=== PATIENT | female | born 1955 | race Caucasian/White ===

== ENCOUNTER 2018-06-13 20:19 | Emergency (ER) | payer MEDICARE, OTHER ==
[~2018-06-13] VITALS: Ht 154.9 cm; Wt 97.3 kg
[2018-06-13] MEDS ORDERED: AMLODIPINE VALS PO (20:41)
[2018-06-13] MEDS ORDERED: LANTUS SOLOS100 U/ML SQ (20:43)
[2018-06-13] MEDS ORDERED: INSULIN HUMA100 U/ML SQ (20:44)
[2018-06-13] MEDS ORDERED: RT ALBUTEROL CC18 GM IH (20:49)
[2018-06-13] MEDS ORDERED: LEXAPRO 10MG10 MG PO (20:49)
[2018-06-13] MEDS ORDERED: NORVASC 5MG5 MG/TAB PO (20:49)
[2018-06-13] MEDS ORDERED: GLUCOPHAGE500 MG/TAB PO (20:50)
[2018-06-13] MEDS ORDERED: KLONOPIN 1MG1 MG PO (20:50)
[2018-06-13] MEDS ORDERED: HYZAAR 100-12.1 EACH PO (20:50)
[2018-06-13] MEDS ORDERED: ZOCOR40 M1 PO (20:51)
[2018-06-13] MEDS ORDERED: ULTRAM50 M1 PO (20:55)
[2018-06-13] MEDS ORDERED: SINGULAIR 110 MG/TAB PO (20:55)
[2018-06-13] MEDS ORDERED: GABAPENTIN TAB600 MG PO (20:56)
[2018-06-13] MEDS ORDERED: WELLBUTRIN SR100 M4 PO (20:56)
[2018-06-13 21:39] LABS: EOS # 0.2 (0.04-0.40); HEMATOCRIT 38.7 % (37.0-47.0); HEMOGLOBIN 13.4 g/dL (12.5-16.0); LYMPH# 2.6 (1.50-4.00); MEAN CELL VOLUME 82 fl (78-100); MEAN CORPUSCULAR HEMOGLOBIN 29 pg (27-31); MEAN CORPUSCULAR HGB CONC 35 g/dL (33-37); MEAN PLATELET VOLUME 10.7 fl (7.4-10.4); MONO # 0.5 (0.20-0.80); NEU # 6.2 (1.40-6.50); PLATELET COUNT 224 K/mm3 (130-400); RED BLOOD COUNT 4.71 M/mm3 (4.10-5.30); RED CELL DISTRIBUTION WIDTH 13.3 % (11.5-14.5); WHITE BLOOD COUNT 9.6 K/mm3 (4.8-10.8)
[2018-06-13 21:48] LABS: CALCIUM 8.9 mg/dL (8.4-10.2); POTASSIUM 3.3 mmol/L (3.6-5.0)
[2018-06-13] MEDS ORDERED: NORCO 325 MG-51 TA1 PO (22:23)
[2018-06-13] MEDS ORDERED: MORGIDOX 1X100100 MG PO (22:23)
[2018-06-13] MEDS ORDERED: IPRATROPIUM BROM3 M1 IH (22:23)
[2018-06-13] MEDS ORDERED: PREDNISONE20 M1 PO (22:23)
[2018-06-13 22:43] VITALS: BP 169/75
== END 2018-06-13 22:43 | disposition home or self-care (01) ==
LOC: ED 20:19
PROVIDERS: Family Medicine
DX: J44.9 Chronic obstructive pulmonary disease, unspecified (principal); I10 Essential (primary) hypertension; E11.9 Type 2 diabetes mellitus without complications; E78.5 Hyperlipidemia, unspecified; F41.9 Anxiety disorder, unspecified; F32.9 Major depressive disorder, single episode, unspecified; F17.210 Nicotine dependence, cigarettes, uncomplicated; Z79.4 Long term (current) use of insulin; Z79.899 Other long term (current) drug therapy; Z91.138 Patient's unintentional underdosing of medication regimen for other reason
CPT/HCPCS: J0595

== ENCOUNTER 2018-12-20 21:14 | Emergency (ER) | payer MEDICARE, OTHER ==
[~2018-12-20] VITALS: Ht 157.5 cm; Wt 97.3 kg
[~2018-12-20 21:14] MED LIST: AMLODIPINE VALS PO; GABAPENTIN TAB600 MG PO; GLUCOPHAGE500 MG/TAB PO; HYZAAR 100-12.1 EACH PO; INSULIN HUMA100 U/ML SQ; IPRATROPIUM BROM3 M1 IH; KLONOPIN 1MG1 MG PO; LANTUS SOLOS100 U/ML SQ; LEXAPRO 10MG10 MG PO; MORGIDOX 1X100100 MG PO; NORCO 325 MG-51 TA1 PO; NORVASC 5MG5 MG/TAB PO; PREDNISONE20 M1 PO; RT ALBUTEROL CC18 GM IH; SINGULAIR 110 MG/TAB PO; ULTRAM50 M1 PO; WELLBUTRIN SR100 M4 PO; ZOCOR40 M1 PO
[2018-12-20 22:32] LABS: EOS # 0.1 (0.04-0.40); HEMATOCRIT 39.1 % (37.0-47.0); HEMOGLOBIN 13.6 g/dL (12.5-16.0); LYMPH# 3.1 (1.50-4.00); MEAN CELL VOLUME 80 fl (78-100); MEAN CORPUSCULAR HEMOGLOBIN 28 pg (27-31); MEAN CORPUSCULAR HGB CONC 35 g/dL (33-37); MEAN PLATELET VOLUME 11.2 fl (7.4-10.4); MONO # 0.3 (0.20-0.80); NEU # 4.8 (1.40-6.50); PLATELET COUNT 248 K/mm3 (130-400); RED BLOOD COUNT 4.88 M/mm3 (4.10-5.30); WHITE BLOOD COUNT 8.4 K/mm3 (4.8-10.8)
[2018-12-20 22:48] LABS: ALBUMIN 3.8 g/dL (3.4-4.8); CALCIUM 9.6 mg/dL (8.3-10.5); POTASSIUM 3.8 mmol/L (3.5-5.1); TOTAL BILIRUBIN 0.3 mg/dL (0.2-1.2); TOTAL PROTEIN 7.3 g/dL (6.2-8.1)
[2018-12-20] MEDS ORDERED: AZITHROMYCIN 250MGPK PO (23:36)
[2018-12-20] MEDS ORDERED: PREDNISONE10 MG PO (23:37)
[2018-12-20] MEDS ORDERED: AERONEB GO NEB1 EACH MC (23:38)
[2018-12-20] MEDS ORDERED: IPRATROPIUM BROM3 M1 IH (23:39)
[2018-12-20] MEDS ORDERED: PROAIR HFA0.09 MG/AC IH (23:39)
[2018-12-20] MEDS ORDERED: ADULT AEROSOL1 EACH MC (23:39)
[2018-12-20] MEDS ORDERED: DIFLUCAN150 M1 PO (23:45)
[2018-12-20 23:47] VITALS: BP 187/89
== END 2018-12-20 23:47 | disposition home or self-care (01) ==
LOC: ED 21:14
PROVIDERS: Nurse Practitioner
DX: J44.9 Chronic obstructive pulmonary disease, unspecified (principal); E11.9 Type 2 diabetes mellitus without complications; I10 Essential (primary) hypertension; F41.9 Anxiety disorder, unspecified; F32.9 Major depressive disorder, single episode, unspecified; E78.5 Hyperlipidemia, unspecified; F17.210 Nicotine dependence, cigarettes, uncomplicated; Z79.4 Long term (current) use of insulin; Z79.84 Long term (current) use of oral hypoglycemic drugs
CPT/HCPCS: J2930

== ENCOUNTER → 2019-05-10 | Outpatient (CLI) | payer MEDICARE, OTHER ==
[~2019-05-10] MED LIST changes: +ADULT AEROSOL1 EACH MC; +AERONEB GO NEB1 EACH MC; +AZITHROMYCIN 250MGPK PO; +DIFLUCAN150 M1 PO; +PREDNISONE10 MG PO; +PROAIR HFA0.09 MG/AC IH
== END ==
LOC: LAB 17:01
PROVIDERS: Internal Medicine
DX: Z01.82 Encounter for allergy testing (principal)

== ENCOUNTER → 2019-05-11 | Outpatient (CLI) | payer MEDICARE, OTHER | LOC: RAD 07:00 | DX: G31.9 Degenerative disease of nervous system, unspecified (principal); E04.2 Nontoxic multinodular goiter; R94.6 Abnormal results of thyroid function studies | CPT/HCPCS: A9585 ==

== ENCOUNTER 2020-06-05 09:23 | Outpatient (RCR) | payer MEDICARE, OTHER | END 2020-06-11 16:12 | disposition home or self-care (01) | LOC: OPPGERO 09:23 | DX: F33.8 Other recurrent depressive disorders (principal); F41.1 Generalized anxiety disorder; E11.9 Type 2 diabetes mellitus without complications; Z62.810 Personal history of physical and sexual abuse in childhood; Z63.4 Disappearance and death of family member; Z79.4 Long term (current) use of insulin ==

== ENCOUNTER 2020-06-12 12:14 | Outpatient (RCR) | payer MEDICARE, OTHER ==
[2020-06-19] MEDS ORDERED: VITAMIN C PUR1000 MG PO (18:13)
[2020-06-19] MEDS ORDERED: DECADRON6 M1 PO (18:13)
[2020-06-19] MEDS ORDERED: ZITHROMAX 250M250 MG PO (18:13)
[2020-06-19] MEDS ORDERED: PHARMASSURE ZIN50 MG PO (18:13)
[2020-06-19] MEDS ORDERED: VITAMIN D3125 MC4 PO (18:13)
== END 2020-07-12 18:19 | disposition home or self-care (01) ==
LOC: OPPGERO 12:14
DX: F41.8 Other specified anxiety disorders (principal); E11.9 Type 2 diabetes mellitus without complications; J44.9 Chronic obstructive pulmonary disease, unspecified; G47.8 Other sleep disorders; Z63.4 Disappearance and death of family member; Z90.710 Acquired absence of both cervix and uterus; Z90.89 Acquired absence of other organs; Z79.4 Long term (current) use of insulin; F17.210 Nicotine dependence, cigarettes, uncomplicated

== ENCOUNTER 2020-07-16 13:22 | Outpatient (RCR) | payer MEDICARE, OTHER ==
[2020-06-19 18:27] VITALS: BP 159/76
[~2020-07-16 13:22] MED LIST changes: +DECADRON6 M1 PO; +PHARMASSURE ZIN50 MG PO; +VITAMIN C PUR1000 MG PO; +VITAMIN D3125 MC4 PO; +ZITHROMAX 250M250 MG PO
== END 2020-08-10 12:30 | disposition home or self-care (01) ==
LOC: OPPGERO 13:22
DX: F32.9 Major depressive disorder, single episode, unspecified (principal); F41.1 Generalized anxiety disorder; E11.9 Type 2 diabetes mellitus without complications; Z63.4 Disappearance and death of family member; Z62.810 Personal history of physical and sexual abuse in childhood; Z90.89 Acquired absence of other organs; Z90.710 Acquired absence of both cervix and uterus; Z98.890 Other specified postprocedural states; Z79.4 Long term (current) use of insulin; Z87.891 Personal history of nicotine dependence

== ENCOUNTER 2020-08-13 09:04 | Outpatient (RCR) | payer MEDICARE, OTHER ==
[2020-06-19 18:27] VITALS: BP 159/76
[~2020-08-13 09:04] MED LIST changes: +GLUCOPHAGE PO; -GLUCOPHAGE500 MG/TAB PO
== END 2020-09-07 16:09 | disposition home or self-care (01) ==
LOC: OPPGERO 09:04
DX: F32.9 Major depressive disorder, single episode, unspecified (principal); F41.9 Anxiety disorder, unspecified

== ENCOUNTER 2020-12-24 17:54 | Emergency (ER) | payer MEDICARE, OTHER ==
[2020-12-24 18:46] LABS: BASO # 0.03 (0.02-0.10); EOS # 0.25 (0.04-0.40); EOS % 4.4 % (1.0-5.0); HEMATOCRIT 42.6 % (37.0-47.0); HEMOGLOBIN 15.5 g/dL (12.5-16.0); LYMPH# 1.93 (1.50-4.00); MEAN CELL VOLUME 79 fl (78-100); MEAN CORPUSCULAR HEMOGLOBIN 29 pg (27-31); MEAN CORPUSCULAR HGB CONC 36 g/dL (33-37); MEAN PLATELET VOLUME 10.7 fl (7.4-10.4); MONO # 0.43 (0.20-0.80); NEU # 3.08 (1.40-6.50); PLATELET COUNT 219 K/mm3 (130-400); RED BLOOD COUNT 5.41 M/mm3 (4.10-5.30); RED CELL DISTRIBUTION WIDTH 12.8 % (11.5-14.5); WHITE BLOOD COUNT 5.7 K/mm3 (4.8-10.8)
[2020-12-24 18:56] LABS: POTASSIUM 3.1 mmol/L (3.5-5.1); SODIUM 136 mmol/L (136-145)
[2020-12-24 18:57] LABS: CALCIUM 8.8 mg/dL (8.3-10.5)
[2020-12-24 18:58] LABS: GLUCOSE 233 mg/dL (65-105); TOTAL PROTEIN 7.3 g/dL (6.2-8.1)
[2020-12-24 18:59] LABS: CARBON DIOXIDE 26 mmol/L (23-31)
[2020-12-24 19:00] LABS: TOTAL BILIRUBIN 0.8 mg/dL (0.2-1.2)
[2020-12-24 19:03] LABS: AST-SGOT 11 U/L (5-34)
[2020-12-24 19:05] LABS: ALT/SGPT 12 U/L (0-55); STREP SCREEN NEGATIVE (NEGATIVE)
[2020-12-24 19:10] LABS: D-DIMER 0.66 mg/L FEU (0.15-0.50)
[2020-12-24 19:17] LABS: TROPONIN-I < 0.03 ng/mL (<0.030)
[2020-12-24] MEDS ORDERED: PREDNISONE20 M1 PO (21:22)
[2020-12-24] MEDS ORDERED: ZITHROMAX Z PA250 MG PO (21:22)
[2020-12-24 22:59] VITALS: BP 158/78
== END 2020-12-24 23:10 | disposition home or self-care (01) ==
LOC: ED 17:54
PROVIDERS: Nurse Practitioner
DX: J44.1 Chronic obstructive pulmonary disease with (acute) exacerbation (principal); I10 Essential (primary) hypertension; E11.9 Type 2 diabetes mellitus without complications; Z79.4 Long term (current) use of insulin; Z79.51 Long term (current) use of inhaled steroids; Z79.899 Other long term (current) drug therapy
CPT/HCPCS: J0696; J1815; J1885; J2405; J2930; J7030; Q9967

== ENCOUNTER → 2021-03-01 | Outpatient (CLI) | payer MEDICARE, OTHER ==
[~2021-03-01] MED LIST changes: +ADVAIR DISKUS1 DS2 IH; +ASPIRIN E.C. 8181 MG PO; +CLARITIN 1010 MG/TAB PO; +CYANOCOBAL1000 MCG/1 IM; +FERROUS SULFATE65 MG PO; +FISH OIL 1000MG1 CAP PO; +KLOR-CON 1010 MEQ PO; +LOPRESSOR 550 MG/TAB PO; +MAGNESIUM OXID400 M1 PO; +NEIGHBOR PH PO; +RT SPIRIVA INH18 MCG IH; +TRICOR145 M1 PO; +VITAMIN D21250 MCG PO; +ZITHROMAX Z PA250 MG PO
[2021-03-01 11:11] LABS: MAGNESIUM 1.49 mg/dL (1.60-2.60)
== END ==
LOC: LAB 10:33
PROVIDERS: Internal Medicine
DX: E11.9 Type 2 diabetes mellitus without complications (principal); E78.2 Mixed hyperlipidemia; K90.9 Intestinal malabsorption, unspecified

== ENCOUNTER → 2021-03-13 | Outpatient (CLI) | payer MEDICARE, OTHER | LOC: LAB 14:22 | DX: Z20.822 Contact with and (suspected) exposure to COVID-19 (principal) ==

== ENCOUNTER 2021-04-12 13:53 | Emergency (ER) | payer MEDICARE, OTHER ==
[~2021-04-12 13:53] MED LIST changes: -ADVAIR DISKUS1 DS2 IH; -ASPIRIN E.C. 8181 MG PO; -CLARITIN 1010 MG/TAB PO; -CYANOCOBAL1000 MCG/1 IM; -FERROUS SULFATE65 MG PO; -FISH OIL 1000MG1 CAP PO; -KLOR-CON 1010 MEQ PO; -LOPRESSOR 550 MG/TAB PO; -MAGNESIUM OXID400 M1 PO; -NEIGHBOR PH PO; -RT SPIRIVA INH18 MCG IH; -TRICOR145 M1 PO; -VITAMIN D21250 MCG PO
[2021-04-12] MEDS ORDERED: ADVAIR DISKUS1 DS2 IH (14:49)
[2021-04-12] MEDS ORDERED: ASPIRIN E.C. 8181 MG PO (14:50)
[2021-04-12] MEDS ORDERED: CYANOCOBAL1000 MCG/1 IM (14:51)
[2021-04-12] MEDS ORDERED: VITAMIN D21250 MCG PO (14:53)
[2021-04-12] MEDS ORDERED: FERROUS SULFATE65 MG PO (14:55)
[2021-04-12] MEDS ORDERED: FISH OIL 1000MG1 CAP PO (14:56)
[2021-04-12 14:57] LABS: ALBUMIN 3.8 g/dL (3.4-4.8); BASO # 0.04 (0.02-0.10); CALCIUM 9.5 mg/dL (8.3-10.5); CARBON DIOXIDE 27 mmol/L (23-31); EOS # 0.16 (0.04-0.40); EOS % 1.8 % (1.0-5.0); GLUCOSE 281 mg/dL (65-105); HEMATOCRIT 39.9 % (37.0-47.0); HEMOGLOBIN 13.7 g/dL (12.5-16.0); LYMPH# 2.79 (1.50-4.00); MEAN CELL VOLUME 85 fl (78-100); MEAN CORPUSCULAR HEMOGLOBIN 29 pg (27-31); MEAN CORPUSCULAR HGB CONC 34 g/dL (33-37); MEAN PLATELET VOLUME 10.8 fl (7.4-10.4); NEU # 5.34 (1.40-6.50); PLATELET COUNT 268 K/mm3 (130-400); POTASSIUM 3.9 mmol/L (3.5-5.1); RED BLOOD COUNT 4.69 M/mm3 (4.10-5.30); RED CELL DISTRIBUTION WIDTH 13.1 % (11.5-14.5); SODIUM 138 mmol/L (136-145); WHITE BLOOD COUNT 8.7 K/mm3 (4.8-10.8)
[2021-04-12 15:08] LABS: ALT/SGPT 12 U/L (0-55); AST-SGOT 11 U/L (5-34); TOTAL BILIRUBIN 0.3 mg/dL (0.2-1.2); TROPONIN-I < 0.03 ng/mL (<0.030)
[2021-04-12] MEDS ORDERED: KLOR-CON 1010 MEQ PO (15:12)
[2021-04-12] MEDS ORDERED: IPRATROPIUM BROM3 M1 IH (15:12)
[2021-04-12] MEDS ORDERED: CLARITIN 1010 MG/TAB PO (15:13)
[2021-04-12] MEDS ORDERED: LOPRESSOR 550 MG/TAB PO (15:14)
[2021-04-12] MEDS ORDERED: MAGNESIUM OXID400 M1 PO (15:14)
[2021-04-12] MEDS ORDERED: NEIGHBOR PH PO (15:16)
[2021-04-12] MEDS ORDERED: TRICOR145 M1 PO (15:17)
[2021-04-12] MEDS ORDERED: RT SPIRIVA INH18 MCG IH (15:17)
[2021-04-12 16:32] LABS: URINE APPEARANCE HAZY; URINE COLOR YELLOW
[2021-04-12 16:38] LABS: URINE BILIRUBIN NEGATIVE (NEGATIVE); URINE BLOOD NEGATIVE (NEGATIVE); URINE GLUCOSE 50 mg/dL mg/dL (NEGATIVE); URINE KETONE NEGATIVE (NEGATIVE); URINE LEUKOCYTE ESTERASE NEGATIVE (NEGATIVE); URINE NITRATE NEGATIVE (NEGATIVE); URINE PROTEIN(semi-quant) NEGATIVE (NEGATIVE); URINE UROBILINOGEN NORMAL (NORMAL)
[2021-04-12 16:39] LABS: URINE MUCUS PRESENT (NOT PRESENT)
[2021-04-12] MEDS ORDERED: PREDNISONE20 M1 PO (19:49)
[2021-04-12 20:22] VITALS: BP 142/67
== END 2021-04-12 20:22 | disposition home or self-care (01) ==
LOC: ED 13:53
PROVIDERS: Nurse Practitioner
DX: J44.1 Chronic obstructive pulmonary disease with (acute) exacerbation (principal); R53.81 Other malaise; R53.83 Other fatigue; F32.A Depression, unspecified; M79.7 Fibromyalgia; E78.2 Mixed hyperlipidemia; G62.9 Polyneuropathy, unspecified; F17.210 Nicotine dependence, cigarettes, uncomplicated; Z86.16 Personal history of COVID-19; Z79.899 Other long term (current) drug therapy; Z20.822 Contact with and (suspected) exposure to COVID-19
CPT/HCPCS: J1885; J2930

== ENCOUNTER → 2021-05-10 | Outpatient (CLI) | payer MEDICARE, OTHER ==
[~2021-05-10] MED LIST changes: +ADVAIR DISKUS1 DS2 IH; +ASPIRIN E.C. 8181 MG PO; +CLARITIN 1010 MG/TAB PO; +CYANOCOBAL1000 MCG/1 IM; +FERROUS SULFATE65 MG PO; +FISH OIL 1000MG1 CAP PO; +KLOR-CON 1010 MEQ PO; +LOPRESSOR 550 MG/TAB PO; +MAGNESIUM OXID400 M1 PO; +NEIGHBOR PH PO; +RT SPIRIVA INH18 MCG IH; +TRICOR145 M1 PO; +VITAMIN D21250 MCG PO
== END ==
LOC: RAD 11:23
DX: M47.816 Spondylosis without myelopathy or radiculopathy, lumbar region (principal); R16.0 Hepatomegaly, not elsewhere classified

== ENCOUNTER → 2021-07-11 | Outpatient (CLI) | payer MEDICARE, OTHER | LOC: RAD 15:58 | DX: M47.26 Other spondylosis with radiculopathy, lumbar region (principal) ==

== ENCOUNTER → 2021-11-19 | Outpatient (CLI) | payer MEDICARE, OTHER ==
[2021-11-19 15:52] LABS: BASO # 0.05 K/mm3 (0.02-0.10); EOS # 0.12 K/mm3 (0.04-0.40); EOS % 1.7 % (1.0-5.0); HEMOGLOBIN 14.3 g/dL (12.5-16.0); LYMPH# 2.62 K/mm3 (1.50-4.00); MEAN CELL VOLUME 82 fl (78-100); MEAN CORPUSCULAR HEMOGLOBIN 29 pg (27-31); MEAN CORPUSCULAR HGB CONC 35 g/dL (33-37); MEAN PLATELET VOLUME 10.6 fl (7.4-10.4); MONO # 0.37 K/mm3 (0.20-0.80); NEU # 4.09 K/mm3 (1.40-6.50); PLATELET COUNT 245 K/mm3 (130-400); RED BLOOD COUNT 5.02 M/mm3 (4.10-5.30); RED CELL DISTRIBUTION WIDTH 13.1 % (11.5-14.5); WHITE BLOOD COUNT 7.3 K/mm3 (4.8-10.8)
[2021-11-19 16:02] LABS: ALBUMIN 4.2 g/dL (3.4-4.8); POTASSIUM 3.7 mmol/L (3.5-5.1)
[2021-11-19 16:03] LABS: CALCIUM 9.6 mg/dL (8.3-10.5)
[2021-11-19 16:05] LABS: TOTAL PROTEIN 7.5 g/dL (6.2-8.1)
[2021-11-19 16:06] LABS: TOTAL BILIRUBIN 0.4 mg/dL (0.2-1.2)
[2021-11-19 16:11] LABS: MAGNESIUM 1.43 mg/dL (1.60-2.60)
[2021-11-19 18:17] LABS: URINE APPEARANCE CLEAR; URINE COLOR YELLOW
[2021-11-19 18:18] LABS: URINE BILIRUBIN NEGATIVE (NEGATIVE); URINE BLOOD NEGATIVE (NEGATIVE); URINE GLUCOSE NEGATIVE (NEGATIVE); URINE KETONE NEGATIVE (NEGATIVE); URINE LEUKOCYTE ESTERASE NEGATIVE (NEGATIVE); URINE MUCUS PRESENT (NOT PRESENT); URINE NITRATE NEGATIVE (NEGATIVE); URINE PROTEIN(semi-quant) 1+ (NEGATIVE); URINE UROBILINOGEN NORMAL (NORMAL); URINE WBC 0-1 /hpf (0-3)
== END ==
LOC: LAB 15:22
PROVIDERS: Internal Medicine
DX: K90.9 Intestinal malabsorption, unspecified (principal); E53.8 Deficiency of other specified B group vitamins; E55.9 Vitamin D deficiency, unspecified; J44.9 Chronic obstructive pulmonary disease, unspecified; G47.33 Obstructive sleep apnea (adult) (pediatric); M47.896 Other spondylosis, lumbar region; E11.42 Type 2 diabetes mellitus with diabetic polyneuropathy; I10 Essential (primary) hypertension; L30.9 Dermatitis, unspecified

== ENCOUNTER 2021-12-22 21:21 | Emergency (ER) | payer MEDICARE, OTHER ==
[~2021-12-22] VITALS: Ht 154.9 cm; Wt 89.1 kg
[2021-12-22] MEDS ORDERED: NORVASC 5MG5 MG/TAB PO (21:33)
[2021-12-22] MEDS ORDERED: HYZAAR 100-12.1 EACH PO (21:33)
[2021-12-22] MEDS ORDERED: NOVOLOG 100U100 U/ML SQ (21:34)
[2021-12-22] MEDS ORDERED: LANTUS PEN100 U/ML SQ (21:34)
[2021-12-22 21:36] VITALS: BP 185/82
== END 2021-12-22 23:48 | disposition home or self-care (01) ==
LOC: ED 21:21
DX: M25.512 Pain in left shoulder (principal); M79.621 Pain in right upper arm; F17.200 Nicotine dependence, unspecified, uncomplicated; W18.39XA Other fall on same level, initial encounter; W22.09XA Striking against other stationary object, initial encounter

== ENCOUNTER 2023-06-14 11:53 | Emergency (ER) | payer MEDICARE, OTHER ==
[~2023-06-14] VITALS: Ht 154.9 cm; Wt 86.8 kg
[~2023-06-14 11:53] MED LIST changes: +LANTUS PEN100 U/ML SQ; +NOVOLOG 100U100 U/ML SQ
[2023-06-14 12:31] LABS: BASO # 0.01 K/mm3 (0.02-0.10); EOS # 0.16 K/mm3 (0.04-0.40); EOS % 4.4 % (1.0-5.0); HEMOGLOBIN 13.8 g/dL (12.5-16.0); LYMPH# 1.67 K/mm3 (1.50-4.00); MEAN CELL VOLUME 81 fl (78-100); MEAN CORPUSCULAR HEMOGLOBIN 29 pg (27-31); MEAN CORPUSCULAR HGB CONC 35 g/dL (33-37); MEAN PLATELET VOLUME 10.3 fl (7.4-10.4); MONO # 0.15 K/mm3 (0.20-0.80); NEU # 1.66 K/mm3 (1.40-6.50); PLATELET COUNT 200 K/mm3 (130-400); RED BLOOD COUNT 4.84 M/mm3 (4.10-5.30); RED CELL DISTRIBUTION WIDTH 13.3 % (11.5-14.5); WHITE BLOOD COUNT 3.7 K/mm3 (4.8-10.8)
[2023-06-14 12:42] LABS: CALCIUM 9.1 mg/dL (8.3-10.5)
[2023-06-14 12:43] LABS: TOTAL PROTEIN 7.5 g/dL (6.2-8.1)
[2023-06-14 12:45] LABS: TOTAL BILIRUBIN 0.7 mg/dL (0.2-1.2)
[2023-06-14 17:01] VITALS: BP 157/80
[2023-06-14] MEDS ORDERED: PREDNISONE20 M1 PO (17:15)
[2023-06-14] MEDS ORDERED: MORGIDOX 1X100100 MG PO (17:15)
[2023-06-14] MEDS ORDERED: ZOFRAN ODT4 MG PO (17:15)
== END 2023-06-14 17:35 | disposition home or self-care (01) ==
LOC: ED 11:53
PROVIDERS: Family Medicine
DX: J44.1 Chronic obstructive pulmonary disease with (acute) exacerbation (principal); I10 Essential (primary) hypertension; Z91.199 Patient's noncompliance with other medical treatment and regimen due to unspecified reason; Z28.310 Unvaccinated for COVID-19
CPT/HCPCS: J0360

== ENCOUNTER → 2023-10-08 | Outpatient (CLI) | payer MEDICARE, OTHER ==
[~2023-10-08] MED LIST changes: +ZOFRAN ODT4 MG PO
[2023-10-08 14:26] LABS: BASO # 0.02 K/mm3 (0.02-0.10); EOS % 1.6 % (1.0-5.0); HEMATOCRIT 38.3 % (37.0-47.0); HEMOGLOBIN 13.6 g/dL (12.5-16.0); MEAN CELL VOLUME 81 fl (78-100); MEAN CORPUSCULAR HEMOGLOBIN 29 pg (27-31); MEAN CORPUSCULAR HGB CONC 36 g/dL (33-37); MEAN PLATELET VOLUME 10.6 fl (7.4-10.4); MONO # 0.27 K/mm3 (0.20-0.80); NEU # 4.63 K/mm3 (1.40-6.50); PLATELET COUNT 248 K/mm3 (130-400); RED BLOOD COUNT 4.76 M/mm3 (4.10-5.30); RED CELL DISTRIBUTION WIDTH 12.8 % (11.5-14.5); WHITE BLOOD COUNT 6.1 K/mm3 (4.8-10.8)
[2023-10-08 14:36] LABS: ALBUMIN 3.9 g/dL (3.4-4.8)
[2023-10-08 14:37] LABS: CALCIUM 9.1 mg/dL (8.3-10.5)
[2023-10-08 14:38] LABS: TOTAL PROTEIN 7.1 g/dL (6.2-8.1)
[2023-10-08 14:40] LABS: TOTAL BILIRUBIN 0.6 mg/dL (0.2-1.2)
[2023-10-08 14:45] LABS: MAGNESIUM 1.06 mg/dL (1.60-2.60)
== END ==
LOC: LAB 14:11
PROVIDERS: Internal Medicine
DX: K90.9 Intestinal malabsorption, unspecified (principal); E11.9 Type 2 diabetes mellitus without complications; I10 Essential (primary) hypertension

== ENCOUNTER → 2023-12-22 | Outpatient (CLI) | payer MEDICARE, OTHER ==
[2023-12-22 17:07] LABS: ALBUMIN 3.9 g/dL (3.4-4.8)
[2023-12-22 17:08] LABS: CALCIUM 9.7 mg/dL (8.3-10.5)
[2023-12-22 17:12] LABS: TOTAL BILIRUBIN 0.4 mg/dL (0.2-1.2)
[2023-12-22 17:17] LABS: MAGNESIUM 1.25 mg/dL (1.60-2.60)
== END ==
LOC: LAB 16:50
PROVIDERS: Internal Medicine
DX: K90.9 Intestinal malabsorption, unspecified (principal); E11.9 Type 2 diabetes mellitus without complications; I10 Essential (primary) hypertension; E78.2 Mixed hyperlipidemia

== ENCOUNTER → 2024-05-13 | Outpatient (CLI) | payer MEDICARE, OTHER ==
[2024-05-13 16:34] LABS: BASO # 0.02 K/mm3 (0.02-0.10); EOS # 0.13 K/mm3 (0.04-0.40); EOS % 1.5 % (1.0-5.0); HEMATOCRIT 38.4 % (37.0-47.0); HEMOGLOBIN 13.7 g/dL (12.5-16.0); LYMPH# 1.66 K/mm3 (1.50-4.00); MEAN CELL VOLUME 81 fl (78-100); MEAN CORPUSCULAR HEMOGLOBIN 29 pg (27-31); MEAN CORPUSCULAR HGB CONC 36 g/dL (33-37); MEAN PLATELET VOLUME 10.4 fl (7.4-10.4); MONO # 0.33 K/mm3 (0.20-0.80); NEU # 6.38 K/mm3 (1.40-6.50); PLATELET COUNT 246 K/mm3 (130-400); RED BLOOD COUNT 4.73 M/mm3 (4.10-5.30); RED CELL DISTRIBUTION WIDTH 13.3 % (11.5-14.5); WHITE BLOOD COUNT 8.5 K/mm3 (4.8-10.8)
[2024-05-13 16:42] LABS: ALBUMIN 4.1 g/dL (3.4-4.8)
[2024-05-13 16:45] LABS: TOTAL PROTEIN 7.5 g/dL (6.2-8.1)
[2024-05-13 16:46] LABS: TOTAL BILIRUBIN 0.4 mg/dL (0.2-1.2)
[2024-05-13 16:51] LABS: MAGNESIUM 1.41 mg/dL (1.60-2.60)
== END ==
LOC: LAB 16:18
PROVIDERS: Internal Medicine
DX: K90.9 Intestinal malabsorption, unspecified (principal); I10 Essential (primary) hypertension; E78.2 Mixed hyperlipidemia; E11.9 Type 2 diabetes mellitus without complications